=== PATIENT | male | born 1990 | race Caucasian/White ===

== ENCOUNTER 2019-02-19 15:13 | Emergency (ER) | payer OTHER ==
[~2019-02-19] VITALS: Ht 177.8 cm; Wt 81.2 kg
--- NOTE | 2019-02-19 15:14 | NUR ---
PT BIBRA/PD TO ED BED 15. PER REPORT, PT WAS NOTED TO BE ACTING BIZZARE, UPON EMS ARRIVAL PT C/O DIFFUSE ABDOMINAL PAIN, -N/V. AGITATED. AND STATING HE IS SUICIDAL W/ PLAN ON HANGING HIMSELF. PLACED ON SUICIDE PRECAUTION. [employer] AT BEDSIDE. AWAITING MD MERCEDES.
[2019-02-19] MEDS ORDERED: LORAZEPAM INJ 2 MG/ML VIAL IM ONE (15:30)
[2019-02-19] MEDS ORDERED: OLANZAPINE 10 MG VIAL IM ONE ×2 (15:30→15:41)
--- NOTE | 2019-02-19 15:31 | NUR ---
MELITON BAILEY AT BEDSIDE FOR EVAL.
--- NOTE | 2019-02-19 15:39 | NUR ---
XEROX MACHINE ASSEMBLER AT BEDSIDE FOR BLOOD DRAW.
[2019-02-19] MEDS ORDERED: LORAZEPAM INJ 2 MG/ML VIAL ONE (15:43)
[2019-02-19 15:44] LABS: BASOPHILS # (AUTO) 0.1 /CMM (0.0-0.2); BASOPHILS % (AUTO) 0.7 % (0.0-2.0); EOSINOPHILS % (AUTO) 1.7 % (0.0-6.0); HEMATOCRIT 41 % (39-51); LYMPHOCYTES # (AUTO) 2.3 /CMM (0.8-4.8); LYMPHOCYTES % (AUTO) 24.2 % (20.0-44.0); MEAN CORPUSCULAR HGB CONC 35 g/dl (31.0-36.0); MEAN CORPUSCULAR VOLUME 92 fL (80-96); MONOCYTES # (AUTO) 1.3 /CMM (0.1-1.30); MONOCYTES % (AUTO) 14.3 % (2.0-12.0); NEUTROPHILS # (AUTO) 5.6 /CMM (1.8-8.9); NEUTROPHILS % (AUTO) 59.1 % (43.0-81.0); PLATELET COUNT (AUTO) 321 /CMM (150-450); RED BLOOD CELL COUNT(AUTO) 4.42 MIL/uL (4.5-6.0); WHITE BLOOD COUNT (AUTO) 9.4 K/uL (4.3-11.0)
[2019-02-19 15:52] LABS: LIPASE 338 U/L (73-393)
[2019-02-19] MEDS ORDERED: IV NS 0.9% 1,000 ML BAG IV ONE ×2 (16:00→18:30)
[2019-02-19 16:04] LABS: ALANINE AMINOTRANSFERASE 127 U/L (12-78); ALBUMIN 3.6 g/dL (3.4-5.0); ALCOHOL, BLOOD < 3 mg/dL (0-0); ALKALINE PHOSPHATASE 79 U/L (46-116); ASPARTATE AMINOTRANSFERASE 67 U/L (15-37); BILIRUBIN,DIRECT 0.1 mg/dL (0.0-0.2); BILIRUBIN,TOTAL 0.6 mg/dL (0.2-1.0); CALCIUM, SERUM 8.3 mg/dL (8.5-10.1); CARBON DIOXIDE 21 mmol/L (21-32); CHLORIDE 106 mmol/L (98-107); CREATININE 0.9 mg/dL (0.6-1.3); GLUCOSE 114 mg/dL (74-106); POTASSIUM 3.6 mmol/L (3.5-5.1); SODIUM SERUM 138 mmol/L (136-145); TOTAL PROTEIN, SERUM 6.9 g/dL (6.4-8.2); UREA NITROGEN, BLOOD 24 mg/dL (7-18)
[2019-02-19 16:06] LABS: ACETAMINOPHEN 0 ug/ml (10-30); SALICYLATE < 0.2 mg/dL (2.8-20.0)
[2019-02-19 16:13] LABS: APPEARANCE,URINE Clear (CLEAR); BILIRUBIN,URINE Negative (NEGATIVE); BLOOD, URINE Negative Ery/uL (NEGATIVE); COLOR,URINE Yellow (YELLOW); KETONES,URINE Negative (NEGATIVE); LEUKOCYTE ESTERASE ,URINE Negative (NEGATIVE); NITRITE, URINE Negative (NEGATIVE); PH,URINE 5.5 (5.0-8.0); PROTEIN,URINE Negative (NEGATIVE); UGLUCOSE Negative (NEGATIVE); UROBILINOGEN,URINE 0.2 EU/dL (0.2)
[2019-02-19 17:09] LABS: CREATINE KINASE, TOTAL 478 U/L (39-308)
--- NOTE | 2019-02-19 17:27 | NUR ---
PT SLEEPING. EASILY AROUSABLE. ON MONITOR W/ STABLE VITALS. PD AT BEDSIDE WILL CONT TO MONITOR.
--- NOTE | 2019-02-19 18:25 | NUR ---
PT IS NO LONGER GONNA BE IN CUSTODY. PD PLACED PT ON A 5150 HOLD FOR DTO. CALLED SECURITY FOR STRIP SEARCH AND WANDING.
--- NOTE | 2019-02-19 18:33 | NUR ---
PT WAS STRIPPED OF CLOTHES AND PLACED IN HOSPITAL GOWN, WANDED BY SECURITY, AND PLACED IN ONE RESTRAINT WITH POSITIVE CMS X4. REMOVED ALL BELONGINGS, PLACED LABELS ON BELONGS BAGS, AND PLACED UNDER SINK BY RN STATION.
--- NOTE | 2019-02-19 23:04 | NUR ---
Alek guidry in [facility] - 02/19/19 at 2304 by ASHER EDDA HARKINS
--- NOTE | 2019-02-19 23:04 | NUR ---
EDDA WILL CALL ORDER CLERK PAGED.
[2019-02-20 00:31] VITALS: BP 128/81
--- NOTE | 2019-02-20 02:13 | NUR ---
PT PROVIDED WITH MULTIPLE SANDWICHES. CLEAN SOCKS. TAP CARD. HOMELESS DISCHARGE FORM. HAS SIGNED FORM. CESARIO AWARE. AWARE. EDDA ARROYOW BROKE [employer] HOLD. PT DISCHARGED IN STABLE CONDITION. IV LINE DISCONTINUED.
== END 2019-02-20 02:15 | disposition home or self-care (01) ==
LOC: ER 15:15
DX: F28 Other psychotic disorder not due to a substance or known physiological condition (principal); F19.10 Other psychoactive substance abuse, uncomplicated; R79.89 Other specified abnormal findings of blood chemistry; I10 Essential (primary) hypertension
CPT/HCPCS: 36415; 80048; 80076; 80307; 80329; 81001; 82550; 83690; 85025; 96372 ×2; 99284; J2060; J3490; J7030 ×2; 80305; 81000-TC; G0480

== ENCOUNTER 2021-01-17 09:23 | Emergency (ER) | payer SELFPAY ==
[~2021-01-17] VITALS: Ht 182.9 cm; Wt 74.8 kg
--- NOTE | 2021-01-17 09:23 | NUR ---
PT BIB [address],OD ON HEROIN. NARCAN NASAL AND IV GIVEN BY EMS EXPLOSIVE ORDNANCE DISPOSAL TECHNICIAN. PT IS AAOX3, NOT IN RESPIRATORY DISTRESS, HOOKED TO TRACK BROOM OPERATOR, KEPT RESTED AND COMFORTABLE. WILL CONTINUE TO MONITOR.
--- NOTE | 2021-01-17 10:06 | NUR ---
AT BEDSIDE FOR EVAL.
--- NOTE | 2021-01-17 10:14 | NUR ---
ER PHLEB AT BEDSIDE FOR BLOOD DRAW.
[2021-01-17 10:22] LABS: BASOPHILS # (AUTO) 0.1 /CMM (0.0-0.2); BASOPHILS % (AUTO) 0.7 % (0.0-2.0); HEMATOCRIT 43 % (39-51); HEMOGLOBIN 14.7 g/dL (13.5-17.5); LYMPHOCYTES # (AUTO) 1.5 /CMM (0.8-4.8); LYMPHOCYTES % (AUTO) 17.1 % (20.0-44.0); MEAN CORPUSCULAR HGB CONC 35 g/dl (31.0-36.0); MEAN CORPUSCULAR VOLUME 90 fL (80-96); MONOCYTES # (AUTO) 0.7 /CMM (0.1-1.30); MONOCYTES % (AUTO) 7.4 % (2.0-12.0); NEUTROPHILS # (AUTO) 6.5 /CMM (1.8-8.9); NEUTROPHILS % (AUTO) 73.8 % (43.0-81.0); PLATELET COUNT (AUTO) 350 /CMM (150-450); RED BLOOD CELL COUNT(AUTO) 4.73 MIL/uL (4.5-6.0); WHITE BLOOD COUNT (AUTO) 8.9 K/uL (4.3-11.0)
[2021-01-17 10:29] LABS: CALCIUM, SERUM 8.8 mg/dL (8.5-10.1); CARBON DIOXIDE 27 mmol/L (21-32); CHLORIDE 101 mmol/L (98-107); CREATININE 1.1 mg/dL (0.6-1.3); GLUCOSE 112 mg/dL (74-106); POTASSIUM 3.5 mmol/L (3.5-5.1); SODIUM SERUM 138 mmol/L (136-145); UREA NITROGEN, BLOOD 20 mg/dL (7-18)
[2021-01-17 10:35] LABS: ALANINE AMINOTRANSFERASE 34 U/L (12-78); ALCOHOL, BLOOD < 3 mg/dL (0-0); ALKALINE PHOSPHATASE 89 U/L (46-116); ASPARTATE AMINOTRANSFERASE 33 U/L (15-37); BILIRUBIN,DIRECT 0.2 mg/dL (0.0-0.2); BILIRUBIN,TOTAL 0.7 mg/dL (0.2-1.0); TOTAL PROTEIN, SERUM 7.5 g/dL (6.4-8.2)
[2021-01-17 10:36] LABS: ACETAMINOPHEN < 2 ug/ml (10-30)
--- NOTE | 2021-01-17 11:35 | NUR ---
canvas worker was called to evaluate this 30 year old male who states he has been using fentanyl & Heroin. This older adult social work specialist met with patient and provided him with referrals to: [facility]: [address] [facility] [place] [address] Intake hours: 5:45am9:00am, walk-ins Saturday, Saturday, [facility]: [address] [place] [address] Intake hours: 5:45am12:30pm, Saturday and [facility]: [id number] [place] [address] Intake hours: 8:00am2:00pm, Saturday through Saturday Patient is refusing referal to [place]. facility. canvas worker provided support with motivational interviewing, education regarding opioid dependence, brief intervention and referral to treatment. Patient s mood is depressed, pt. crying during interview. Pt.denies suicidal ideation. Pt. is disheveled or and A&O x 3. Patient appears to be at the contemplation phase of change with his substance dependence. Patient will return states he wants to return to the streets upon discharge. Patient could not states if he has received treatment for opioid dependence at previously. Patient lacks a support system. Pt. states family lives in [place]. canvas worker provided her desk number for patient to call if he needs additional support, resources or assistance. Pt. refused to sign homeless waiver. Addiction resources also provided include: ADDICTION RESOURCES For Drugs and Alcohol [facility] Substance Abuse Helpline([facility] Outpatient treatment, residential treatment, recovery support for youth and adults [facility] www.actionfamilycounseling.[facility] Teen programs for drug/alcohol education and support Sheila Mazomanie [place]. Program for adults, sliding scale provides support and education BriannaSambazon www.FetchDog.org [place]; Outpatient/residential treatment programs; transition to sober living [facility] www.cri-help.org [place]; Outpatient and residential treatment programs; transition to sober living [facility] Srinivasan [place]; Outpatient education and supportive programs for teens and adults [facility] www.oasiswomensrecovery.org Anthony; Residential treatment and work program for females only Dexter Mazomanie www.phoMirageWorksmary [facility].org Lovely: Outpatient/residential treatment program for teens and young adults [facility] www.[facility].org Tarzana Detox, inpatient, outpatient for adults and youth [facility], [facility]. [place]; Outpatient programs and referrals to community residential programs. Alcoholics Anonymous -SFV information and meeting and schedules www.aa-intergroup.org Gr-Uloz-Wonldog https://al-anon.org/ [place] support groups for family of alcoholics. Marijuana Anonymous www.madistrict6.org -sfv listing of meetings Narcotics Anonymous www.na.org SOBER LIVING RESOURCES [facility] www.soberhousing.net A non-profit agency that provides resources to recovery and sober living homes throughout [facility] Sober Living Homes: A Work in Progress[facility] Recovery [facility]oc[facility], [place] [facility] Srinivasan [place] [facility]omens Sober Living Homes: [facility] x [address] [place], [place] [facility]ed Sober Living Homes: [facility] Counseling--Outpatient [facility] [address] [place] [address] (Specializes in in-depth psychotherapy for emotional distress: anxiety, depression, interpersonal conflicts, life transitions, childhood abuse) Community [facility] [address] [place] [address] (Assist with solving problem marital difficulties, separation & divorce, aging parents, & grief, chronic & terminal illness) [facility] [address] [place] [address] (Deal with loss & grief, anxiety, marital difficulties) Homebound/Mental Health Services [address] [facility] [address] [place] [address] (Provide in-home mental services to people who are incapable of leaving their homes) Organization for Needs of the Elderly Senior Service/Resource Center [address] [place] [address] [facility] [address] [place] [address] [address]IENT SERVICES [facility] Partial Hospitalization and Intensive Outpatient Program (Managed Care and [place] Only)[address] [facility] [phone] [facility] Partial Hospitalization and Outpatient [id number] [facility] [address] [place], [place] [phone] [facility] Partial Hospitalization and Outpatient Olcvxji[address] [place], [place] [phone] [facility] Mental Health Center I[address] [facility] [address] [place], [place] [phone] [facility] Partial Hospitalization and Outpatient Fgrktcm03882 [place], [phone] Crisis and Hotline Telephone Numbers 24-Hour service unless stated [place] Crisis Hotlines: [place] Mental Health/Crisis Line........527.701.5132 Suicide Prevention Center (24 Hours).......679-209-9062 Suicide Prevention Crisis Center.......630.766.7430 (24 Hours) Assaults Against Women Hotline.........306.788.2237 (24 Hours -- [facility]) Women and Children Crisis Halfway...........[phone] (24 Hours) Child Abuse Hotline............782.503.5773 [facility] Rape Treatment Center (24 Hours)..........[phone] Alcoholics Anonymous (24 Hours)..........453.630.3614 Cocaine Anonymous (24 Hours)............789.606.3979 Narcotics Anonymous (24 Hours)..........[phone] [place] COUNTS INCLUDE 234 BEDS AT THE [facility] [address] [place] [address] Mental Health Services [facility] [address] [place] [address] Services: Outpatient therapy for children, teens, young adults, adults, older adults, and families; Psychiatric services, medication support Crisis and Hotline Telephone Numbers 24-Hour service unless stated [place] Crisis Hotlines: [facility] Mental Health/Crisis Line........[phone] Suicide Prevention Center (24 Hours).......[phone] Suicide Prevention Crisis Center.......[phone] (24 Hours) Alcoholics Anonymous (24 Hours)..........993.199.8586 National Crisis Hotlines: Alcohol and Drug Helpline - Provides referrals to local facilities where adolescents and adults can seek help. Brief intervention. LUIGI Helpline National [place] [facility] 4-268-126-886-767-WPEB National Youth Crisis Hotline [place] [facility]. Provides free information on specific disorders, referral directory to mental health providers, national directory of local mental health associations (M-F, 9-5 EST) National [place] of Mental Health Information Line: Provide sinformation and literature on mental illness by disorder-for professionals and general public.
[2021-01-17 11:42] LABS: BILIRUBIN,URINE SMALL (NEGATIVE); COLOR,URINE YELLOW (YELLOW); LEUKOCYTE ESTERASE ,URINE Negative (NEGATIVE); NITRITE, URINE Negative (NEGATIVE); PH,URINE 6.5 (5.0-8.0); PROTEIN,URINE 100 mg/dl (NEGATIVE); UGLUCOSE Negative (NEGATIVE); UROBILINOGEN,URINE 0.2 EU/dL (0.2)
[2021-01-17 11:53] LABS: RBC,URINE 0-2 /HPF (0-2)
[2021-01-17 11:54] LABS: BACTERIA,URINE None seen /HPF (None Seen); MUCUS,URINE Few /LPF (None Seen); SPERM,URINE Many /HPF (None Seen); SQUAMOUS EPITHELIAL CELL,UR Few /HPF (None Seen); URINE AMORPHOUS URATE Few /HPF (None Seen)
[2021-01-17] MEDS ORDERED: ONDANSETRON HCL/PF 4 MG/2 ML VIAL ONE (12:00)
[2021-01-17] MEDS ORDERED: IV NS 0.9% 500 ML BAG IV ONE (12:30)
[2021-01-17] MEDS ORDERED: ONDANSETRON HCL/PF - ER 4 MG/2 ML VIAL IV ONE (12:30)
--- NOTE | 2021-01-17 15:15 | NUR ---
PT ABLE TO AMBULATE WITHOUT ASSISTANCE. AWARE.
--- NOTE | 2021-01-17 15:18 | NUR ---
PT BECAME AGGRESSIVE TOWARDS STAFF AND INSISTING THAT HE WANTS TO BE DISCHARGED. AWARE.
--- NOTE | 2021-01-17 15:20 | NUR ---
IV removed. Catheter intact and site benign. Pressure and 4x4 applied to site. No bleeding noted.
--- NOTE | 2021-01-17 15:22 | NUR ---
Patient does not wish to proceed with medical care recommended by Dr. zurita. Patient given information related to possible complications, up to and including , which could occur as a result of leaving the hospital at this time. Patient verbalizes understanding of risks involved due to leaving against medical advice. Patient has signed AMA form.
[2021-01-17 15:24] VITALS: BP 122/61
== END 2021-01-17 15:24 | disposition left against medical advice (07) ==
LOC: ER 09:23
DX: T40.601A Poisoning by unspecified narcotics, accidental (unintentional), initial encounter (principal); R41.82 Altered mental status, unspecified; I10 Essential (primary) hypertension; Z60.2 Problems related to living alone; Y92.89 Other specified places as the place of occurrence of the external cause
CPT/HCPCS: 36415; 80048; 80076; 80143; 80307; 80320; 81001; 85025; 96361; 96374; 99285; J2405; J7030; G0480